=== PATIENT | male | born 1955 | race African-American/Black ===

== ENCOUNTER 2018-05-18 04:08 | Emergency (ER) | payer MEDICAID ==
[~2018-05-18] VITALS: Ht 180.3 cm; Wt 63.0 kg
[2018-05-18] MEDS ORDERED: LORAZEPAM 2MG/ML CPJ ONE (05:27)
[2018-05-18] MEDS ORDERED: LORAZEPAM 2MG/ML CPJ IV ONE (05:30)
[2018-05-18] MEDS ORDERED: SODIUM CHLORIDE 0.9% 1,000 ML IV ONE (06:46)
[2018-05-18 07:11] LABS: CHLORIDE 110 mEq/L (98-107)
[2018-05-18 07:16] LABS: ETHANOL BLOOD < 10 mg/dL
[2018-05-18 07:44] LABS: BASOPHILS % 0.4 % (0.0-2.0); HEMATOCRIT. 40.1 % (42.0-52.0); HEMOGLOBIN. 13.3 g/dL (14.0-18.0); LYMPHOCYTES % 11.1 % (20.0-50.0); MEAN CORPUSCULAR HEMOGLOBIN 33.1 pg (28.0-32.0); MEAN CORPUSCULAR VOLUME 99.6 fL (80.0-94.0); MEAN PLATELET VOLUME 7.7 fl (7.4-10.4); MONOCYTES % 5.9 % (2.0-8.0); NEUTROPHILS % 82.6 % (40.0-76.0); PLATELET 246 x1000/uL (130-400); RED BLOOD CELL COUNT 4.02 mill/uL (4.7-6.1); RED CELL DISTRIBUTION WIDTH 15.6 % (11.6-14.6)
[2018-05-18] MEDS ORDERED: LEVETIRACETAM 500MG PREMIX 100 ML IV ONE (12:30)
[2018-05-18 14:18] LABS: CLARITY URINE CLOUDY (CLEAR); COLOR URINE YELLOW (YELLOW); KETONES URINE 1+ (NEGATIVE); LEUKOCYTE ESTERASE URINE NEGATIVE (NEGATIVE); NITRITE URINE NEGATIVE (NEGATIVE); OCCULT BLOOD URINE 1+ (NEGATIVE); PH URINE 5.5 (4.5-8.0); PROTEIN URINE 1+ (NEGATIVE); SPECIFIC GRAVITY URINE 1.022 (1.005-1.030)
[2018-05-18 15:06] LABS: *AMPHETAMINES SCREEN URINE NEGATIVE (NEGATIVE)
[2018-05-18 15:07] LABS: *BARBITURATES SCREEN URINE NEGATIVE (NEGATIVE); *BENZODIAZEPINES SCREEN URINE NEGATIVE (NEGATIVE); *COCAINE SCREEN URINE PRESUMTIVE POSITIVE (NEGATIVE); CANNABINOID URINE SCREEN PRESUMTIVE POSITIVE (NEGATIVE); METHADONE URINE SCREEN NEGATIVE (NEGATIVE); OPIATES URINE SCREEN NEGATIVE (NEGATIVE)
[2018-05-18 15:08] LABS: PHENCYCLIDINE URINE SCREEN NEGATIVE (NEGATIVE)
[2018-05-18 15:20] VITALS: BP 139/68
== END 2018-05-18 15:57 | disposition home or self-care (01) ==
LOC: EDBD 04:48 → ER 04:48
DX: G40.909 Epilepsy, unspecified, not intractable, without status epilepticus (principal); E11.9 Type 2 diabetes mellitus without complications
CPT/HCPCS: 36415; 70450; 71045; 80053; 80305; 80320; 81003; 82962; 85025; 96365; 96375; 99284; J1953; J2060; J7030; Z7610; G0480

== ENCOUNTER 2018-11-28 12:35 | Emergency (ER) | payer MEDICARE, MEDICAID ==
[~2018-11-28] VITALS: Ht 167.6 cm; Wt 55.0 kg
[2018-11-28 14:36] LABS: BASOPHILS % 0.6 % (0.0-2.0); EOSINOPHILS % 0.7 % (0.0-5.0); HEMATOCRIT. 39.3 % (42.0-52.0); HEMOGLOBIN. 13.1 g/dL (14.0-18.0); LYMPHOCYTES % 27.8 % (20.0-50.0); MEAN CORPUSCULAR HEMOGLOBIN 33.9 pg (28.0-32.0); MEAN CORPUSCULAR VOLUME 101.5 fL (80.0-94.0); MEAN PLATELET VOLUME 7.1 fl (7.4-10.4); MONOCYTES % 4.9 % (2.0-8.0); PLATELET 223 x1000/uL (130-400); RED BLOOD CELL COUNT 3.87 mill/uL (4.7-6.1); RED CELL DISTRIBUTION WIDTH 15.6 % (11.6-14.6)
[2018-11-28 14:39] LABS: CHLORIDE 107 mEq/L (98-107)
[2018-11-28] MEDS ORDERED: LORAZEPAM 2MG/ML CPJ ONE (15:05)
[2018-11-28] MEDS ORDERED: LORAZEPAM 2MG/ML CPJ IV ONE (15:15)
[2018-11-28] MEDS ORDERED: LORAZEPAM 2MG/ML CPJ IM ONE (15:15)
[2018-11-28 23:12] VITALS: BP 142/81
== END 2018-11-28 23:33 | disposition home or self-care (01) ==
LOC: ER 12:35
DX: R56.9 Unspecified convulsions (principal); E11.9 Type 2 diabetes mellitus without complications; Z98.890 Other specified postprocedural states
CPT/HCPCS: 36415; 80053; 85025; 96372; 99283; J2060